=== PATIENT | male | born 1960 | race Caucasian/White ===

== ENCOUNTER 2021-10-17 09:12 | Day surgery (SDC) | payer MEDICARE, MEDICAID ==
[~2021-10-17] VITALS: Ht 185.4 cm; Wt 110.6 kg
[2021-10-17] VITALS (8 sets, daily range): BP systolic 104–147; BP diastolic 71–93
[2021-10-17] MEDS ORDERED: diphenhydrAMINE 25mg capsule PO PRN (09:55)
[2021-10-17] MEDS ORDERED: normal saline 1,000 ML IV SCH (09:55)
[2021-10-17 10:45] LABS: BASOPHILS # (AUTO) 0.1 X10'3 (0-0.2); EOSINOPHILS # (AUTO) 0.1 X10'3 (0-0.9); EOSINOPHILS % (AUTO) 1.7 % (0-6); HEMATOCRIT 49.2 % (42.0-52.0); HEMOGLOBIN 16.6 g/dl (14.0-17.9); LYMPHOCYTES # (AUTO) 1.3 X10'3 (1.1-4.8); LYMPHOCYTES % (AUTO) 17.7 % (21-51); MEAN CORPUSCULAR HEMOGLOBIN 31.8 PG (27.0-31.0); MEAN CORPUSCULAR HGB CONC 33.7 g/dL (33.0-36.5); MEAN CORPUSCULAR VOLUME 94.4 FL (78-98); MEAN PLATELET VOLUME 8.1 FL (7.4-10.4); MONOCYTES # (AUTO) 0.5 X10'3 (0-0.9); NEUTROPHILS # (AUTO) 5.2 X10'3 (1.8-7.7); NEUTROPHILS % (AUTO) 72.6 % (42-75); PLATELET COUNT 186 X10'3 (140-440); RED BLOOD COUNT 5.22 X10'6 (4.70-6.10); RED CELL DISTRIBUTION WIDTH 13.6 % (11.5-14.5); WHITE BLOOD COUNT 7.2 X10'3 (4.5-11.0)
[2021-10-17] MEDS ORDERED: ATOR20TA66 PO (10:48)
[2021-10-17] MEDS ORDERED: NITR0.4T48 SL (10:48)
[2021-10-17] MEDS ORDERED: ESCI-8 PO (10:48)
[2021-10-17] MEDS ORDERED: DILT360C32 PO (10:48)
[2021-10-17] MEDS ORDERED: IBUP-1985 PO (10:48)
[2021-10-17] MEDS ORDERED: CITA10TA22 PO (10:48)
[2021-10-17 10:55] LABS: ALBUMIN 4.1 G/DL (3.4-5.0); ANION GAP 8 (8-16); BLOOD UREA NITROGEN 14 MG/DL (7-18); BUN/CREATININE RATIO 14.7 (5.4-32.0); CALCIUM 9.2 MG/DL (8.5-10.1); CHLORIDE 106 MMOL/L (99-107); CREATININE 0.95 MG/DL (0.60-1.10); GLUCOSE 99 MG/DL (70-104); MAGNESIUM 2.2 MG/DL (1.5-2.4); POTASSIUM 3.9 MMOL/L (3.5-5.1); SODIUM 142 MMOL/L (135-145); eGFR 80 ML/MIN
[2021-10-17] MEDS ORDERED: midazolam 1 mg/ML 2ml injection ONE ×3 (11:02→11:55)
[2021-10-17] MEDS ORDERED: heparin 1,000unit/ml 10ml vial 10 ML ONE (11:02)
[2021-10-17] MEDS ORDERED: iohexol 350 MG/ML 50ML vial IV ONE (11:02)
[2021-10-17] MEDS ORDERED: LIDOcaine 1% (10mg/ml)w/preservative injection 20ml MDV ONE (11:02)
[2021-10-17] MEDS ORDERED: fentaNYL/PF 50MCG/1 ML 2ML syringe ONE (11:02)
[2021-10-17] MEDS ORDERED: verapamil 2.5 mg/ml inj IV ONE (11:02)
[2021-10-17] MEDS ORDERED: nitroGLYCERIN-Tridil 50MG/D5W 250 ML IV ONE (11:02)
[2021-10-17] MEDS ORDERED: iohexol 350MG/ML 100ml bottle IV ONE (11:03)
[2021-10-17] MEDS ORDERED: ATI1T PO (11:15)
[2021-10-17] MEDS ORDERED: BUDE10.7 INH (11:15)
[2021-10-17] MEDS ORDERED: LIDOcaine/PRILOcaine 5gm cream TP ONE (11:25)
[2021-10-17] MEDS ORDERED: HYDROcodone/acetaminophen 5mg/325mg tablet PO PRN (12:55)
[2021-10-17] MEDS ORDERED: HYDROcodone/acetaminophen 10/325mg tab PO PRN (12:55)
[2021-10-17] MEDS ORDERED: proCHLORperazine 10 MG/2 ml inj IV PRN (12:55)
[2021-10-17] MEDS ORDERED: ondansetron/PF 4mg/2ml inj IV PRN (12:55)
[2021-10-17] MEDS ORDERED: normal saline 1000ml 1,000 ML IV SCH (12:55)
== END 2021-10-17 15:50 | disposition home or self-care (01) ==
LOC: SSTAY O 09:12
PROVIDERS: ATTEND Internal Medicine Cardiovascular Disease
DX: R07.89 Other chest pain (principal); I10 Essential (primary) hypertension; E78.5 Hyperlipidemia, unspecified; J44.9 Chronic obstructive pulmonary disease, unspecified; F41.9 Anxiety disorder, unspecified; Z79.899 Other long term (current) drug therapy; Z87.891 Personal history of nicotine dependence
CPT/HCPCS: 36415; 80048; 83735; 85025; 85610; 93005; 93458; 99152; 99153; C1769; C1894; J1644; J2250; J3010; J3490; J7030; Q0163; Q9967; A4620; A6258